=== PATIENT | female | born 1980 | race Caucasian/White ===

== ENCOUNTER → 2017-03-24 | Outpatient (CLI) | payer OTHER | LOC: FIMAGING 09:18 | PROVIDERS: ATTEND Orthopaedic Surgery Orthopaedic Surgery of the Spine | DX: M50.922 Unspecified cervical disc disorder at C5-C6 level (principal) ==

== ENCOUNTER → 2017-05-06 | Outpatient (CLI) | payer OTHER | LOC: FIMAGING 16:28 | PROVIDERS: ATTEND Orthopaedic Surgery Orthopaedic Surgery of the Spine | DX: M96.1 Postlaminectomy syndrome, not elsewhere classified (principal); Z98.1 Arthrodesis status ==

== ENCOUNTER → 2017-05-24 | Outpatient (CLI) | payer OTHER | LOC: FIMAGING 13:44 | PROVIDERS: ATTEND Orthopaedic Surgery Orthopaedic Surgery of the Spine | DX: M96.1 Postlaminectomy syndrome, not elsewhere classified (principal) ==

== ENCOUNTER → 2017-07-04 | Outpatient (CLI) | payer OTHER | LOC: FIMAGING 12:48 | PROVIDERS: ATTEND Orthopaedic Surgery Orthopaedic Surgery of the Spine | DX: Z09 Encounter for follow-up examination after completed treatment for conditions other than malignant neoplasm (principal); Z98.1 Arthrodesis status ==

== ENCOUNTER → 2017-08-24 | Outpatient (CLI) | payer OTHER | LOC: FIMAGING 15:42 | PROVIDERS: ATTEND Orthopaedic Surgery Orthopaedic Surgery of the Spine | DX: Z98.1 Arthrodesis status (principal) ==

== ENCOUNTER → 2018-08-02 | Outpatient (CLI) | payer OTHER | LOC: FIMAGING 14:55 | PROVIDERS: ATTEND Family Medicine | DX: Z12.31 Encounter for screening mammogram for malignant neoplasm of breast (principal) ==

== ENCOUNTER → 2018-08-05 | Outpatient (CLI) | payer OTHER | LOC: FIMAGING 07:25 | PROVIDERS: ATTEND Family Medicine | DX: K76.0 Fatty (change of) liver, not elsewhere classified (principal) ==

== ENCOUNTER → 2018-08-22 | Outpatient (CLI) | payer OTHER | LOC: CIMAGING 12:29 | PROVIDERS: ATTEND Family Medicine | DX: R92.8 Other abnormal and inconclusive findings on diagnostic imaging of breast (principal); R92.2 Inconclusive mammogram | CPT/HCPCS: 76641-PO ==

== ENCOUNTER → 2018-08-26 | Outpatient (CLI) | payer OTHER ==
[~2018-08-26] MED LIST: GADOBUTROL 10 ML VIAL IVP ONE
== END ==
LOC: FIMAGING 13:28
PROVIDERS: ATTEND Family Medicine
DX: K76.0 Fatty (change of) liver, not elsewhere classified (principal)
CPT/HCPCS: A9585